=== PATIENT | female | born 1945 | race Caucasian/White ===

== ENCOUNTER → 2016-11-08 | Outpatient (REF) | payer MEDICARE ==
[2016-11-08 13:55] LABS: BASOPHILS % (AUTO) 0 % (0-2); EOSINOPHILS # (AUTO) 0.1 10^3uL; EOSINOPHILS % (AUTO) 2 % (0-4); LYMPHOCYTES # (AUTO) 2.8 X10^3; MEAN CORPUSCULAR HEMOGLOBIN 28.6 PG (26.0-34.0); MEAN CORPUSCULAR HGB CONC 32.3 g/dL (31.0-37.0); MEAN CORPUSCULAR VOLUME 89 FL (80-100); MEAN PLATELET VOLUME 11.5 FL (6.0-9.5); MONOCYTES # (AUTO) 0.7 X10^3; MONOCYTES % (AUTO) 10 % (3-11); NEUTROPHILS # (AUTO) 3.5 X10^3; NEUTROPHILS % (AUTO) 49 % (51-67); PLATELET COUNT 242 10^3uL (150-450); WHITE BLOOD COUNT 7.18 10^3uL (4.0-11.0)
[2016-11-08 14:01] LABS: ALBUMIN 4.3 g/dL (3.4-5.0); ANION GAP 16.1 MEQ/L (3-15); CALCULATED IONIZED CALCIUM 4.2 mg/dL (3.8-4.6); TOTAL PROTEIN 7.1 g/dL (6.4-8.5)
[2016-11-08 14:05] LABS: BILIRUBIN,URINE Negative (Negative); CLARITY,URINE Clear; GLUCOSE, URINE (UA) Negative (Negative); LEUKOCYTE ESTERASE ,URINE Negative (Negative); UROBILINOGEN,URINE 0.2 mg/dL (0.2-1.0)
[2016-11-08 14:14] LABS: COLOR,URINE Light Yellow
== END ==
LOC: LAB 13:20
PROVIDERS: ATTEND Family Medicine
DX: K62.5 Hemorrhage of anus and rectum (principal); E78.4 Other hyperlipidemia; R00.1 Bradycardia, unspecified; E03.8 Other specified hypothyroidism; Z95.0 Presence of cardiac pacemaker; F41.8 Other specified anxiety disorders; K21.9 Gastro-esophageal reflux disease without esophagitis
CPT/HCPCS: 80053; 80061; 81003; 84443; 85025; 86803

== ENCOUNTER → 2016-11-26 | Outpatient (REF) | payer MEDICARE ==
[2016-11-26 12:32] LABS: ANION GAP 17.1 MEQ/L (3-15)
[2016-11-26 12:34] LABS: BILIRUBIN,URINE Negative (Negative); CLARITY,URINE Clear; COLOR,URINE Yellow; GLUCOSE, URINE (UA) Negative (Negative); LEUKOCYTE ESTERASE ,URINE Negative (Negative); UROBILINOGEN,URINE 0.2 mg/dL (0.2-1.0)
== END ==
LOC: LAB 11:44
PROVIDERS: ATTEND Family Medicine
DX: R55 Syncope and collapse (principal); R00.1 Bradycardia, unspecified
CPT/HCPCS: 80048; 81003; 85014; 85018

== ENCOUNTER 2016-11-30 06:57 | Day surgery (SDC) | payer MEDICARE ==
[~2016-11-30] VITALS: Ht 157.5 cm; Wt 75.0 kg
[~2016-11-30 06:57] MED LIST: LACTATED RINGERS 1,000 ML IV SCH; SODIUM CHLORIDE FLUSH 3 ML SYR IV PRN
[2016-11-30 07:11] VITALS: BP 126/64
[2016-11-30] MEDS ORDERED: MIDAZOLAM 2 MG/2 ML (VERSED) VIAL ONE (08:13)
[2016-11-30] MEDS ORDERED: PROPOFOL 20 ML IV ONE (08:13)
[2016-11-30] MEDS ORDERED: ALFENTANIL 500 MCG/ML (ALFENTA) 5 ML AMP IV ONE (08:13)
[2016-11-30 09:56] VITALS: BP 108/62
[2016-11-30 10:16] VITALS: BP 125/54
== END 2016-11-30 10:30 | disposition home or self-care (01) ==
LOC: ASC 06:57
PROVIDERS: ATTEND Surgery
DX: Z12.11 Encounter for screening for malignant neoplasm of colon (principal); D12.5 Benign neoplasm of sigmoid colon; K62.1 Rectal polyp; Z86.010 Personal history of colon polyps; F41.9 Anxiety disorder, unspecified; E03.9 Hypothyroidism, unspecified; Z95.0 Presence of cardiac pacemaker
CPT/HCPCS: 45380; 88305; J2250; J7120

== ENCOUNTER → 2016-12-17 | Outpatient (CLI) | payer MEDICARE | LOC: RAD 08:17 | PROVIDERS: ATTEND Family Medicine | DX: Z12.31 Encounter for screening mammogram for malignant neoplasm of breast (principal) ==